=== PATIENT | female | born 1970 ===

== ENCOUNTER 2017-04-07 07:30 | Day surgery (SDC) | payer OTHER ==
[2015-12-04 07:26] VITALS: BMI 15.7
[2017-04-07 08:00] VITALS: TEMP 97.5; O2SAT 100
--- NOTE | 2017-04-07 09:12 | CP.SDSHP ---
Same Day Surgery H & P - History Proposed Procedure: EGD Pre-Op Diagnosis: SEE NOTES - Previous Medical/Surgical History Misc: Other Pain: 4.Moderate Pain Previous Surgical History: C/SEC. - Allergies Allergies: Allergies seafood Allergy (Uncoded 12/04/15 07:26) - Physical Exam General Appearance: N Vital Signs: Vital Signs 04/07/17 07:51 Temperature 97.5 F L Pulse Rate 81 Respiratory 18 Rate Blood Pressure 103/63 O2 Sat by Pulse 100 Oximetry Mental Status: Alert & Oriented x3 Neuro: WNL Heart: WNL Lungs: WNL GI: Other - {Optional Preform as Required} Breast: WNL Abdomen: Other Rectal: Other Integument: WNL : WNL Ortho: WNL ENT: WNL - Impression Pt. Evaluated Today:Candidate for Anesthesia & Procedure: Yes - Date & Time Time: 09:12 Short Stay Discharge - Short Stay Discharge Admitting Diagnosis/Reason for Visit: FUNCTIONAL DYSPEPSIA Disposition: HOME/ ROUTINE
[2017-04-07] MEDS ORDERED: Propofol 10 mg/ml Inj (20 ML) ONE (09:15)
[2017-04-07 10:48] VITALS: BP 104/67; PULSE 90; RESP 20
== END 2017-04-07 10:35 | disposition home or self-care (01) ==
LOC: C.ENDO 07:30
PROVIDERS: ATTEND Specialist
DX: K26.9 Duodenal ulcer, unspecified as acute or chronic, without hemorrhage or perforation (principal); K29.80 Duodenitis without bleeding; K29.70 Gastritis, unspecified, without bleeding
CPT/HCPCS: 43239; 84703; 88305; 88342; J2001; J2704

== ENCOUNTER 2017-08-04 07:23 | Day surgery (SDC) | payer OTHER ==
[2015-12-04 07:26] VITALS: BMI 15.7
[2017-08-04 08:18] VITALS: O2SAT 100
[2017-08-04] MEDS ORDERED: Belladonna-Phenobarbital PO STA (09:16)
--- NOTE | 2017-08-04 09:16 | CP.SDSHP ---
Same Day Surgery H & P - History Proposed Procedure: EGD Pre-Op Diagnosis: SEE NOTES - Previous Medical/Surgical History Misc: Other Pain: 4.Moderate Pain - Allergies Allergies: Allergies seafood Allergy (Mild, Uncoded 08/04/17 07:43) RASH - Physical Exam General Appearance: N Vital Signs: Vital Signs 08/04/17 08:07 Temperature 97.7 F Pulse Rate 0 L Respiratory 16 Rate Blood Pressure 104/71 O2 Sat by Pulse 100 Oximetry Mental Status: Alert & Oriented x3 Neuro: WNL Heart: WNL Lungs: WNL GI: Other - {Optional Preform as Required} Breast: WNL Abdomen: Other Rectal: Other Integument: WNL : WNL Ortho: WNL ENT: WNL Short Stay Discharge - Short Stay Discharge Admitting Diagnosis/Reason for Visit: FUNCTIONAL DYSPEPSIA Disposition: HOME/ ROUTINE
[2017-08-04] MEDS ORDERED: Propofol 10 mg/ml Inj (20 ML) ONE (09:19)
--- NOTE | 2017-08-04 09:26 | CP.SDSHP ---
Same Day Surgery H & P - Allergies Allergies: Allergies seafood Allergy (Mild, Uncoded 08/04/17 07:43) RASH - Physical Exam Vital Signs: Vital Signs 08/04/17 08:07 Temperature 97.7 F Pulse Rate 0 L Respiratory 16 Rate Blood Pressure 104/71 O2 Sat by Pulse 100 Oximetry Short Stay Discharge - Short Stay Discharge Admitting Diagnosis/Reason for Visit: FUNCTIONAL DYSPEPSIA Disposition: HOME/ ROUTINE
[2017-08-04 09:47] VITALS: TEMP 98
[2017-08-04 10:07] VITALS: RESP 18
[2017-08-04 10:19] VITALS: BP 102/68; PULSE 87
== END 2017-08-04 10:30 | disposition home or self-care (01) ==
LOC: C.ENDO 07:23
PROVIDERS: ATTEND Specialist
DX: K30 Functional dyspepsia (principal); K29.50 Unspecified chronic gastritis without bleeding; K44.9 Diaphragmatic hernia without obstruction or gangrene
CPT/HCPCS: 43239; 84703; 88305; 88342; J2704